=== PATIENT | male | born 1985 | race Caucasian/White ===

== ENCOUNTER → 2021-11-08 12:56 | Outpatient (CLI) | payer OTHER, SELFPAY | PROVIDERS: Referring Provider Student in an Organized Health Care Education/Training Program; Visit Provider Family Medicine | DX: T81.33XA Disruption of traumatic injury wound repair, initial encounter (principal); S81.811A Laceration without foreign body, right lower leg, initial encounter; V29.9XXA Motorcycle rider (driver) (passenger) injured in unspecified traffic accident, initial encounter | CPT/HCPCS: 11042; 99204; 99213 ==

== ENCOUNTER → 2021-11-15 09:38 | Outpatient (CLI) | payer OTHER, SELFPAY | PROVIDERS: Referring Provider Student in an Organized Health Care Education/Training Program; Visit Provider Family Medicine | DX: T81.33XA Disruption of traumatic injury wound repair, initial encounter (principal); S81.811A Laceration without foreign body, right lower leg, initial encounter | CPT/HCPCS: 11042 ==

== ENCOUNTER → 2021-11-22 11:45 | Outpatient (CLI) | payer OTHER, SELFPAY | PROVIDERS: PCP Student in an Organized Health Care Education/Training Program; Referring Provider Student in an Organized Health Care Education/Training Program; Visit Provider Family Medicine | DX: S81.811A Laceration without foreign body, right lower leg, initial encounter (principal) | CPT/HCPCS: 11042 ==

== ENCOUNTER → 2021-11-28 10:28 | Outpatient (CLI) | payer OTHER, SELFPAY | PROVIDERS: PCP Student in an Organized Health Care Education/Training Program; Referring Provider Student in an Organized Health Care Education/Training Program; Visit Provider Family Medicine | DX: S81.811A Laceration without foreign body, right lower leg, initial encounter (principal) | CPT/HCPCS: 99212 ==

== ENCOUNTER 2023-08-20 11:20 | Day surgery (SDC) | payer OTHER, SELFPAY ==
--- NOTE | 2023-08-20 | PATH_ITS ---
[facility] Accession Number: [id number] No. of containers..01 Tissue . 01 Material submitted: . gastrointestinal site - ANTRUM . 01 Clinical history: . RULE OUT H.PYLORI . 01 Diagnosis: STOMACH, ANTRUM, BIOPSY: Superficial fragments of antral mucosa with mild chronic inflammation. Negative for Helicobacter by immunohistochemistry. Negative for intestinal metaplasia. Negative for dysplasia and malignancy. MRV 08/22/2023 1445 Local . 01 Electronically signed: . Katherine Banda MD, Pathologist NPI- [id number] . 01 Gross description: . ANTRUM: Received in formalin are 2 fragment(s) of grant, soft tissue measuring 0.1 x 0.1 x 0.1 cm to 0.3 x 0.2 x 0.2 cm submitted entirely in 1 cassette(s) /[place] 08/21/2023 2157 Local . 01 Microscopic: . An immunohistochemical stain was performed to evaluate for Helicobacter organisms and is negative. The control stain showed appropriate reactivity. . * This test was developed and its performance characteristics determined by [facility]. It has not been cleared or approved by the U.S. Food and Drug Administration. The FDA has determined that such clearance or approval is not necessary. This test is used for clinical purposes. It should not be regarded as investigational or for research. . 01 Pathologist provided ICD-10: K21.9 . 01 CPT . 930422, D01407 Specimen Comment: A courtesy copy of this report has been sent to [phone] Performed at: 01 [facility] [address] [place] [address] Suite [facility], [place], [place] [id number] MD Kenrick Lovell MD Phone: [phone]
[2023-08-20 11:52] VITALS: BP 145/95; PULSE 69; RESP 18; TEMP 36.3; O2SAT 98
[2023-08-20] MEDS: LACTATED RINGERS 1,000 ML 42 ML IV (12:03)
--- NOTE | 2023-08-20 12:29 | PM.HP.1 ---
History of Present Illness History of Present Illness Date Patient Seen: 08/20/23 Time Patient Seen: 12:29 Chief complaint: EGD Narrative: I reviewed the recent clinic note by Dr. Andrew. He has since started on twice daily omeprazole and has noticed that he has not felt the need to reach for a Tums of late. [facility] Social History Smoking Status: Never smoker Meds Home Medications and Allergies Home Medications Medication Instructions Recorded Confirmed Type acetaminophen 500 mg tablet 500 mg PO Q4HP PRN Pain (Scale 08/17/17 08/20/23 History (Tylenol Extra Strength) Score 1-3) ##0 diazepam 5 mg tablet (Valium) 5 mg PO Q12HP PRN #10 tabs 08/17/17 08/20/23 Rx hydrocodone 5 mg-acetaminophen 325 1 tab PO Q6HP PRN #10 tabs 08/17/17 08/20/23 Rx mg tablet ([place]) naproxen sodium 220 mg capsule 220 mg PO ##0 08/17/17 History (Aleve) terbinafine HCl 250 mg tablet 250 mg PO QDAY ##0 08/17/17 History (Lamisil) Allergies Allergy/AdvReac Type Severity Reaction Status Date / Time No Known Allergies Allergy Uncoded 10/03/17 12:16 Review of Systems Review of Systems ROS: Yes All systems reviewed with the patient and are negative except as otherwise documented Exam Vital Signs (past 8 hours): - 08/20/23 11:52 Temperature 97.3 F L Pulse Rate 69 Respiratory Rate 18 Blood Pressure 145/95 H Pulse Oximetry 98 Oxygen Delivery Method Room Air Oxygen Delivery Method Room Air Const General: cooperative HENMT Head: normal to inspection Eyes General: appearance normal, both eyes and all related structures Neck Neck: normal visual inspection Chest Chest: normal inspection of the chest Resp Effort & Inspection: normal respiratory effort Cardio Rate: regular rate GI Inspection: normal to inspection Skin General: no rashes or lesions noted Neuro General: patient alert and patient awake Extrem General: normal to inspection and no pedal edema Psych Appearance: grossly normal Assessment & Plan Assessment & Plan narrative: 37-year-old male with chronic longstanding reflux suboptimally controlled here for endoscopic examination. There has been a slight improvement with b.i.d. PPI. EGD is pursued today.
--- NOTE | 2023-08-20 12:30 | PM.PREOP ---
Pre-operative Note Interval Note History & Physical reviewed/Exam performed by Physician: Yes Changes to H&P: Yes ASA Class (for procedural sedation): II
--- NOTE | 2023-08-20 13:48 | PM.OP.EGD ---
Operative Date/Time/Diagnoses Date of procedure: 08/20/23 Time of procedure: 13:48 Pre-op diagnosis: Chronic GERD Post-op diagnosis: same Procedure & Clinicians Study performed: EGD with biopsies Same procedure as scheduled: Yes Indications: Chronic GERD Surgeon: Osman Jordan Procedure Notes SCOAP/Timeout: Done Procedure in detail: After the risks and benefits were explained, written and verbal informed consent was obtained. The patient was brought into the procedure room and placed into the left lateral decubitus position. Please see anesthesia note for sedation details. The scope was introduced into the mouth through the bite block and advanced under direct visualization to the 2nd portion of the duodenum. The scope was slowly withdrawn carefully examining the mucosa for any defects or lesions. Retroflexed views were accomplished in the stomach. The stomach was decompressed, the scope was then removed from the patient who tolerated the procedure sub-optimally. He had a tendency to cough and seemed difficult to sedate. Sedation minutes: 9 Complications: none Impression: 1. Duodenal: This was normal from the bulb through to the 2nd portion. 2. Stomach: No evidence of any outlet obstruction. No ulcers no mass lesions. Retroflexed views of the LES were unremarkable. No overt pathology throughout the stomach. There was mildly increased erythema scattered throughout the antrum and therefore biopsies were taken from this location for exclusion of H pylori. 3. Esophagus: The patient had a fairly lax lower esophageal sphincter mechanism. There was perhaps a very subtle sliding hiatal hernia but less than a cm of travel was visualized today. Z-line was sharp and fairly well demarcated at around the level of the GE junction. This was approximately 41 cm from the incisors. No overt suggestion of Barretts. There was evidence of a very subtle erosion consistent with LA grade A erosive esophagitis. The remainder of the esophagus was visually unremarkable. Endoscopic diagnosis 1. Subtle small sliding hiatal hernia 2. LA grade A erosive esophagitis 3. Mild nonspecific gastropathy Post-procedure Plan for aftercare: 1. Await histology. 2. Continue anti-reflux therapy as needed to control symptoms of reflux. Disposition: PACU
[2023-08-20 13:50] VITALS: BP 146/101; PULSE 84; RESP 15; TEMP 36.4; O2SAT 96
[2023-08-20 13:55] VITALS: BP 140/96; PULSE 79; RESP 22; O2SAT 99
[2023-08-20 14:00] VITALS: BP 146/105; PULSE 69; RESP 23; O2SAT 100
[2023-08-20 14:05] VITALS: BP 140/98; PULSE 65; RESP 10; O2SAT 100
== END 2023-08-20 14:17 | disposition home or self-care (01) ==
PROVIDERS: PCP Student in an Organized Health Care Education/Training Program; Referring Provider Internal Medicine Gastroenterology; Visit Provider Internal Medicine Gastroenterology
PROC: 0DJ08ZZ Inspection of Upper Intestinal Tract, Via Natural or Artificial Opening Endoscopic (ICD-10-PCS; CPT 43235; principal; 2023-08-20 13:00)
DX: K21.9 Gastro-esophageal reflux disease without esophagitis (principal); K31.9 Disease of stomach and duodenum, unspecified; K44.9 Diaphragmatic hernia without obstruction or gangrene; K20.80 Other esophagitis without bleeding; K29.50 Unspecified chronic gastritis without bleeding
CPT/HCPCS: 43239

== ENCOUNTER 2024-08-18 18:08 | Emergency (ER) | payer OTHER, SELFPAY ==
[2024-08-18 18:27] VITALS: BP 139/89; PULSE 95; RESP 17; TEMP 36.5; O2SAT 98; BMI 32.1
--- NOTE | 2024-08-18 21:14 | ED_ITS ---
HPI - Animal Bite General Chief Complaint: Animal Bite Stated Complaint: Dog bite upper right arm Time Seen by Provider: 08/18/24 21:14 Source: patient Mode of arrival: Ambulatory History of Present Illness HPI narrative: 38-year-old male without any significant past medical history comes into the ED from home for evaluation of dog bite, he states that his dogs were in a fight and he got in between them got bit to right upper forearm/in her right bicep as well as to his left forearm, however he states that the primary concern is to his right for arm/right inner biceps. He is up-to-date on all his vaccines including tetanus his dogs are up-to-date on all there vaccines as well. He denies any numbness weakness tingling to the extremity just pain at the site of where the dog ?ripped off a piece of his skin. Patient not on any blood thinners no other injuries or traumas. Related Data Home Medications Medication Instructions Recorded Confirmed acetaminophen 500 mg tablet 500 mg PO Q4HP PRN Pain (Scale 08/17/17 08/20/23 (Tylenol Extra Strength) Score 1-3) ##0 naproxen sodium 220 mg capsule 220 mg PO ##0 08/17/17 (Aleve) terbinafine HCl 250 mg tablet 250 mg PO QDAY ##0 08/17/17 (Lamisil) Previous Rx's Medication Instructions Recorded diazepam 5 mg tablet (Valium) 5 mg PO Q12HP PRN #10 tabs 08/17/17 hydrocodone 5 mg-acetaminophen 325 1 tab PO Q6HP PRN #10 tabs 08/17/17 mg tablet ([place]) amoxicillin 875 mg-potassium 1 tab PO BID 10 days #20 tabs 08/18/24 clavulanate 125 mg tablet Allergies Allergy/AdvReac Type Severity Reaction Status Date / Time No Known Drug Allergies Allergy Verified 08/18/24 18:27 Review of Systems Review of Systems Narrative: General: Denies fever, chills, weight loss HEENT: Denies headache, eye drainage, eye irritation, head trauma, sore throat, voice change Cardiovascular: Denies any chest pain, palpitations, shortness of breath, tachycardia Respiratory: Denies any shortness of breath, cough, wheeze, stridor GI/: Denies any abdominal pain, nausea, vomiting, diarrhea, bright red blood per rectum, melanotic stools, urinary frequency, urinary retention, dysuria, hematuria MSK: Denies any joint pain, muscle pains, swelling Skin: Cut laceration bite to the right inner arm and left forearm Neuro: Denies any headache, lightheadedness, dizziness, fainting, weakness Psych: Denies SI/HI Patient History Social History Smoking Status: Never smoker Smoking Status: Never smoker alcohol intake frequency: a few times a week Exam Narrative Exam Narrative: General: Cooperative, comfortable, well-developed, not in acute distress HEENT: Normocephalic, atraumatic, PERRLA, normal sclera, eyelids normal, Neck: Active full range of motion, atraumatic Chest: Normal to inspection, negative crepitus, no overlying erythema ecchymosis Respiratory: Normal respiratory effort, not in acute respiratory distress, clear to auscultation bilaterally negative cough, wheeze, tachypnea, rhonchi, rales Cardiology: Regular rate rhythm negative gallop, murmur, rubs GI/: Normal to inspection, soft, nonrigid, no tenderness to palpation, exam deferred MSK: Full range of active range of motion of all 4 extremities, bilateral upper extremities are neurovascularly intact Skin: There is a superficial 1 cm laceration noted to the left forearm not actively bleeding, there is a large avulsion to the right inner biceps, not actively bleeding, size is approximately 8 cm in diameter foreign body noted Neuro: Alert awake oriented x3, moves all 4 extremities spontaneously, cranial nerves intact, able to answer all questions appropriately follows commands appropriately Psych: Cooperative, negative suicidal or homicidal ideations Initial Vital Signs Initial Vital Signs: Vital Signs Temperature 97.7 F 08/18/24 18:27 Pulse Rate 95 H 08/18/24 18:27 Respiratory Rate 17 08/18/24 18:27 Blood Pressure 139/89 08/18/24 18:27 Pulse Oximetry 98 08/18/24 18:27 Oxygen Delivery Method Room Air 08/18/24 18:27 Procedures Laceration Repair Laceration 1: Time of procedure: 22:09 Site: upper extremity Side (If applicable): right Size (cm): 8 Description: irregular Depth: simple, single layer Local Anesthetic: lidocaine 2% Amount of anesthesia used (mL): 15 Pre-repair: wound explored, irrigated extensively and deep structures intact Skin layer closed with: other (Ethilon) Skin layer suture size: 3-0 Number of sutures: 6 Technique: simple, interrupted Laceration 2: Time of procedure: 22:10 Site: upper extremity Side (If applicable): right Size (cm): 1 Description: linear Depth: simple, single layer Local Anesthetic: lidocaine 2% Amount of anesthesia used (mL): 5 Pre-repair: wound explored, irrigated extensively and deep structures intact Skin layer closed with: other (Ethilon) Skin layer suture size: 3-0 Number of sutures: 1 Course Vital Signs Vital signs: Vital Signs - 8 hr 08/18/24 18:27 Temperature 97.7 F Pulse Rate 95 H Respiratory Rate 17 Blood Pressure 139/89 Pulse Oximetry 98 Oxygen Delivery Method Room Air MDM - Animal Bite Differential Diagnosis Differential diagnosis: Likely bite by animal, dog bite and other (Laceration, avulsion) MDM Narrative Medical decision making narrative: Patient is a 38-year-old male without any significant past medical history presenting for dog bite and avulsion laceration, his dogs were fighting he got in between them sustained cut/avulsion laceration to his right inner arm, patient neurovascularly intact on exam he is up-to-date on vaccines sores his dogs. Patient was anesthetized and loose approximation of the avulsion/laceration that was approximately 8 cm to the inner biceps was performed here in the emergency department. Patient will be given antibiotics 1st dose here and sent home for prophylactic infection. Patient upper extremities neurovascularly intact. Thoroughly irrigated without any foreign bodies noted It was also instructed follow up with primary care and wound care and out's patient's setting, he was given strict return precautions he v erbalized understanding of this and agrees to being discharged home with outpatient follow up Discharge Plan Departure Patient Disposition: Home Clinical Impression: Dog bite, Laceration Instructions: DI for Laceration Repair, DI for Dog Bite Activity Restrictions/Additional Instructions: Please follow up with primary care and wound care You have 7 sutures that need to be removed in approximately 1 week Please read the discharge instructions sheet carefully and bring all papers to all doctor follow-up visits, as it may contain information that your doctor may want to see. Disease processes change and evolve, if your symptoms worsen or if you develop any new symptoms that are concerning to you please return for evaluation. Your evaluation today does not show any evidence of any life- threatening/serious illnesses requiring admission to the hospital or surgery. Please follow-up with your doctor for re-evaluation in approximately 1 day. Seek immediate medical attention for any worrisome symptoms. *If you do not have a primary care provider please contact the [facility] Resource line at [phone]. They will ask some questions about your medical history and help get you set up with a doctor in the community. Prescriptions: New amoxicillin-pot clavulanate 875-125 mg tablet 1 tab PO BID 10 Days Qty: 20 0RF No Action acetaminophen [Tylenol Extra Strength] 500 MG tablet 500 mg PO Q4HP PRN (Reason: Pain (Scale Score 1-3)) Qty: 0 naproxen sodium [Aleve] 220 MG capsule 220 mg PO Qty: 0 terbinafine HCl [Lamisil] 250 MG tablet 250 mg PO QDAY Qty: 0 hydrocodone-acetaminophen [[place]] 5 MG/325 MG tablet 1 tab PO Q6HP PRNQty: 10 0RF diazepam [Valium] 5 MG tablet 5 mg PO Q12HP PRNQty: 10 0RF Referrals: Nemesio Christopher [Primary Care Provider] - Stand Alone Forms: Patient Portal/API/Survey
[2024-08-18] MEDS: LIDOCAINE 2% W/EPI INJ 10 ML VIAL 20 ML INJ (22:19)
[2024-08-18] MEDS: AMOXICILLIN/CLAV 875/125 MG 1 TAB PO (22:19)
[2024-08-18 22:25] VITALS: O2SAT 95
[2024-08-18 22:26] VITALS: BP 160/101; PULSE 93; RESP 18; O2SAT 96
--- NOTE | 2024-08-18 22:29 | PC.NURSE ---
Dr. Yu assessed pt, cleansed wound and dressed wound after suturing the wound.
== END 2024-08-18 22:33 | disposition home or self-care (01) ==
PROVIDERS: Emergency Provider Student in an Organized Health Care Education/Training Program; PCP Student in an Organized Health Care Education/Training Program
DX: S41.151A Open bite of right upper arm, initial encounter (principal); W54.0XXA Bitten by dog, initial encounter
CPT/HCPCS: 12004; 99283

== ENCOUNTER → 2024-08-21 08:38 | Outpatient (CLI) | payer OTHER, SELFPAY | PROVIDERS: PCP Student in an Organized Health Care Education/Training Program; Visit Provider Surgery | DX: S41.151A Open bite of right upper arm, initial encounter (principal); W54.0XXA Bitten by dog, initial encounter | CPT/HCPCS: 11042; 99213 ==

== ENCOUNTER → 2024-08-28 09:59 | Outpatient (CLI) | payer OTHER, SELFPAY ==
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
== END ==
PROVIDERS: PCP Student in an Organized Health Care Education/Training Program; Referring Provider Student in an Organized Health Care Education/Training Program; Visit Provider Surgery
DX: S41.151A Open bite of right upper arm, initial encounter (principal); W54.0XXA Bitten by dog, initial encounter; R60.0 Localized edema
CPT/HCPCS: 11042

== ENCOUNTER → 2024-09-05 08:50 | Outpatient (CLI) | payer OTHER, SELFPAY | PROVIDERS: PCP Student in an Organized Health Care Education/Training Program; Referring Provider Student in an Organized Health Care Education/Training Program; Visit Provider Physician Assistant | DX: S41.151D Open bite of right upper arm, subsequent encounter (principal) | CPT/HCPCS: 11042; 99212; 99214 ==

== ENCOUNTER → 2024-09-12 15:45 | Outpatient (CLI) | payer OTHER, SELFPAY ==
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
== END ==
PROVIDERS: PCP Student in an Organized Health Care Education/Training Program; Referring Provider Student in an Organized Health Care Education/Training Program; Visit Provider Physician Assistant
DX: S41.151A Open bite of right upper arm, initial encounter (principal); L92.8 Other granulomatous disorders of the skin and subcutaneous tissue; R60.0 Localized edema
CPT/HCPCS: 17250; 99212

== ENCOUNTER → 2024-09-19 13:59 | Outpatient (CLI) | payer OTHER, SELFPAY | PROVIDERS: PCP Student in an Organized Health Care Education/Training Program; Referring Provider Student in an Organized Health Care Education/Training Program; Visit Provider Physician Assistant | DX: S41.151A Open bite of right upper arm, initial encounter (principal); R60.0 Localized edema; I10 Essential (primary) hypertension | CPT/HCPCS: 99212; 99213 ==

== ENCOUNTER → 2024-09-26 13:45 | Outpatient (CLI) | payer OTHER, SELFPAY | PROVIDERS: PCP Student in an Organized Health Care Education/Training Program; Referring Provider Student in an Organized Health Care Education/Training Program; Visit Provider Physician Assistant | DX: S41.151D Open bite of right upper arm, subsequent encounter (principal) | CPT/HCPCS: 99212 ==